=== PATIENT | female | born 1945 | race Caucasian/White ===

== ENCOUNTER → 2017-05-07 | Outpatient (CLI) | payer MEDICARE, MEDICAID ==
[~2017-05-07] MED LIST: GABAPENTIN800 MG PO; HYDROCHLOROTHIA25 M1 PO; LEVOTHYROXINE0.15 M1 PO; LOSARTAN POTAS100 MG PO; MUCINEX1200 MG PO; PRAVASTATIN SOD40 MG PO; PREDNISONE 20MG20 MG PO; PROMETHAZINE D118 ML PO; PROVENTIL0.09 MG/A1 IH; VOLTAREN75 MG PO; ZITHROMAX Z PA250 MG PO
[2017-05-07 15:08] LABS: BUN 15 mg/dL (7-18)
[2017-05-07 15:15] LABS: GFR (ESTIMATED) 61 ML/MIN (59-)
[2017-05-09 06:44] LABS: Creatinine, Urine 205.8 mg/dL (Not Estab.); Microalbumin, Urine 13.1 ug/mL (Not Estab.)
== END ==
LOC: LAB 14:19
PROVIDERS: Nurse Practitioner Family
DX: E11.9 Type 2 diabetes mellitus without complications (principal); I10 Essential (primary) hypertension